=== PATIENT | female | born 2000 | race Two or more races ===

== ENCOUNTER 2024-05-26 11:06 | Outpatient (CLI) | payer OTHER | END 2024-05-26 11:07 | disposition home or self-care (01) | LOC: PRENATAL 11:06 | PROVIDERS: ATTEND Obstetrics & Gynecology Maternal & Fetal Medicine | DX: O36.80X0 Pregnancy with inconclusive fetal viability, not applicable or unspecified (principal); Z36.82 Encounter for antenatal screening for nuchal translucency ==

== ENCOUNTER → 2024-07-14 08:05 | Outpatient (CLI) | payer OTHER ==
[~2024-07-14 08:05] MED LIST: ACETAMINOPHEN500 M2 PO; MACROBID 100 M100 MG PO; PEPCID AC10 MG PO; PRENA1 TRUE CO1 EACH PO
== END | disposition home or self-care (01) ==
LOC: PRENATAL 08:05
PROVIDERS: ATTEND Obstetrics & Gynecology Maternal & Fetal Medicine
DX: O44.00 Complete placenta previa NOS or without hemorrhage, unspecified trimester (principal); Z3A.19 19 weeks gestation of pregnancy

== ENCOUNTER 2024-08-02 13:43 | Emergency (ER) | payer OTHER ==
[~2024-08-02] VITALS: Ht 144.8 cm; Wt 69.4 kg
[2024-08-02] MEDS ORDERED: ACETAMINOPHEN500 M2 PO (14:24)
[2024-08-02] MEDS ORDERED: PRENA1 TRUE CO1 EACH PO (14:24)
[2024-08-02] MEDS ORDERED: PEPCID AC10 MG PO (14:24)
[2024-08-02] MEDS ORDERED: ACETAMINOPHEN 500 MG GEL..CAP PO ONE ×2 (17:45→18:09)
[2024-08-02 18:33] LABS: HEMATOCRIT 31.8 % (36.0-45.00); HEMOGLOBIN 10.7 g/dL (12.0-15.00); MEAN CELL VOLUME 85.1 fL (80.00-100.00); MEAN CORPUSCULAR HEMOGLOBIN 28.7 pg (27.00-32.0); MEAN CORPUSCULAR HGB CONC 33.7 g/dl (32.0-36.0); PLATELET COUNT 333 K/uL (150-450); RED BLOOD COUNT 3.73 M/uL (4.00-6.00)
[2024-08-02 18:57] LABS: PH,URINE 5.5 (5.0-8.0); URINE APPEARANCE Cloudy; URINE BILIRRUBIN Negative (NEGATIVE); URINE BLOOD Negative; URINE COLOR Yellow; URINE GLUCOSE Negative (NEGATIVE); URINE KETONE 15 (NEGATIVE); URINE LEUKOCYTE Small; URINE NITRATE Negative; URINE PROTEIN Trace (NEGATIVE); URINE UROBILINOGEN 0.2 E.U./dl
[2024-08-02 19:01] LABS: URINE EPITHELIAL CELLS 173.9 uL (0.0-38.8); URINE RBC 4.7 uL (0.0-20.8)
[2024-08-02 19:19] LABS: URINE BACTERIA > 9821.5 uL (0.0-1933); URINE CAST 0.15 uL (0.0-1.40)
[2024-08-02] MEDS ORDERED: MACROBID 100 M100 MG PO (19:34)
== END 2024-08-02 20:51 | disposition home or self-care (01) ==
LOC: ER 13:45
PROVIDERS: Nurse Practitioner Family
DX: O23.42 Unspecified infection of urinary tract in pregnancy, second trimester (principal); N39.0 Urinary tract infection, site not specified; O26.892 Other specified pregnancy related conditions, second trimester; J00 Acute nasopharyngitis [common cold]; Z3A.23 23 weeks gestation of pregnancy; Z20.822 Contact with and (suspected) exposure to COVID-19

== ENCOUNTER 2024-08-05 10:29 | Emergency (ER) | payer OTHER ==
[~2024-08-05] VITALS: Ht 144.8 cm; Wt 69.4 kg
[2024-08-05] MEDS ORDERED: LIDOCAINE HCL VISCOUS 20MG/ML BLIST 15ML MM ONE ×4 (13:30→13:45)
[2024-08-05] MEDS ORDERED: GUAIFENESIN/DEXTROMETHORPHAN 10ML BLIST.PACK PO ONE (13:30)
[2024-08-05] MEDS ORDERED: GUAIFEN/DEXTROMETHORPHAN/PE 10 ML BLIST.PACK PO ONE ×2 (13:38→13:39)
[2024-08-05 14:06] LABS: HEMATOCRIT 32.9 % (36.0-45.00); HEMOGLOBIN 11.3 g/dL (12.0-15.00); MEAN CELL VOLUME 85.4 fL (80.00-100.00); MEAN CORPUSCULAR HEMOGLOBIN 29.2 pg (27.00-32.0); MEAN CORPUSCULAR HGB CONC 34.2 g/dl (32.0-36.0); PLATELET COUNT 341 K/uL (150-450); RED BLOOD COUNT 3.85 M/uL (4.00-6.00); RED CELL DISTRIBUTION WIDTH 14.1 % (11.5-14.5)
[2024-08-05 14:07] LABS: PH,URINE 6.5 (5.0-8.0); URINE APPEARANCE Cloudy; URINE BACTERIA 4530.9 uL (0.0-1933); URINE BILIRRUBIN Negative (NEGATIVE); URINE BLOOD Negative; URINE COLOR Yellow; URINE EPITHELIAL CELLS 127.4 uL (0.0-38.8); URINE GLUCOSE Negative (NEGATIVE); URINE KETONE Negative (NEGATIVE); URINE LEUKOCYTE Moderate; URINE NITRATE Negative; URINE PROTEIN Negative (NEGATIVE); URINE RBC 5.3 uL (0.0-20.8); URINE UROBILINOGEN 0.2 E.U./dl; URINE WBC 179.5 uL (0.0-23.2)
== END 2024-08-05 16:04 | disposition home or self-care (01) ==
LOC: ER 10:31
PROVIDERS: Emergency Medicine
DX: Z34.90 Encounter for supervision of normal pregnancy, unspecified, unspecified trimester (principal); J40 Bronchitis, not specified as acute or chronic; N39.0 Urinary tract infection, site not specified; J00 Acute nasopharyngitis [common cold]

== ENCOUNTER → 2024-10-04 15:24 | Outpatient (CLI) | payer OTHER | END | disposition home or self-care (01) | LOC: PRENATAL 15:24 | PROVIDERS: ATTEND Obstetrics & Gynecology Maternal & Fetal Medicine | DX: O26.849 Uterine size-date discrepancy, unspecified trimester (principal); O36.8199 Decreased fetal movements, unspecified trimester, other fetus; O26.859 Spotting complicating pregnancy, unspecified trimester; Z3A.32 32 weeks gestation of pregnancy ==

== ENCOUNTER 2024-11-18 18:14 | Inpatient (IN) | payer OTHER ==
[~2024-11-18] VITALS: Ht 144.8 cm; Wt 73.9 kg
[2024-11-18 16:29] VITALS: BP 142/82
[2024-11-18] MEDS ORDERED: RINGERS SOLUTION,LACTATED 1,000 ML IV SCH (18:30)
[2024-11-18] MEDS ORDERED: AMPICILLIN SODIUM 2,000 MG VIAL IV ONE (18:30)
[2024-11-18 18:48] LABS: PH,URINE 6.5 (5.0-8.0); URINE APPEARANCE Turbid; URINE BILIRRUBIN Negative (NEGATIVE); URINE BLOOD Negative; URINE COLOR Yellow; URINE GLUCOSE Negative (NEGATIVE); URINE KETONE Negative (NEGATIVE); URINE LEUKOCYTE Large; URINE NITRATE Negative; URINE PROTEIN Negative (NEGATIVE); URINE UROBILINOGEN 0.2 E.U./dl
[2024-11-18 18:52] LABS: URINE EPITHELIAL CELLS 73.2 uL (0.0-38.8); URINE RBC 4.4 uL (0.0-20.8); URINE WBC 322.6 uL (0.0-23.2)
[2024-11-18 19:06] LABS: HEMATOCRIT 31.6 % (36.0-45.00); HEMOGLOBIN 10.4 g/dL (12.0-15.00); MEAN CELL VOLUME 75.6 fL (80.00-100.00); MEAN CORPUSCULAR HGB CONC 33.1 g/dl (32.0-36.0); PLATELET COUNT 364 K/uL (150-450); RED BLOOD COUNT 4.18 M/uL (4.00-6.00); RED CELL DISTRIBUTION WIDTH 16.8 % (11.5-14.5); URINE BACTERIA > 9821.5 uL (0.0-1933)
[2024-11-18 19:10] LABS: INR 0.97; PARTIAL THROMBOPLASTIN TIME 27.9 SECONDS (22.0-34.0); PROTHROMBIN TIME 10.6 SECONDS (9.0-11.5)
[2024-11-18 19:14] LABS: ALBUMIN 2.6 gm/dL (3.4-5.0); BILIRUBIN TOTAL 0.3 mg/dL (0.3-1.2); CALCIUM 9.1 mg/dL (8.5-10.1); CREATININE SERUM 0.61 mg/dL (0.55-1.02); GFR 120.5; GLOBULINA 4.8 G/DL (2.4-3.5); POTASSIUM 4.07 mEq/L (3.5-5.1); TOTAL PROTEIN 7.4 gm/dL (6.4-8.2)
[2024-11-18 20:43] VITALS: BP 142/90
[2024-11-18] MEDS ORDERED: AMPICILLIN SODIUM 1,000 MG VIAL IV SCH (21:00)
[2024-11-18 23:22] VITALS: BP 131/82
[2024-11-19 03:17] VITALS: BP 129/78
[2024-11-19 07:22] VITALS: BP 122/80
[2024-11-19] MEDS ORDERED: MISOPROSTOL 25 MCG/4 ML GEL.W.APPL ONE ×2 (12:14→18:32)
[2024-11-19 12:15] VITALS: BP 129/78
[2024-11-19] MEDS ORDERED: MISOPROSTOL 25 MCG/4 ML GEL.W.APPL VAG ONE (12:15)
[2024-11-19 15:37] VITALS: BP 120/77
[2024-11-19 23:33] VITALS: BP 128/88
[2024-11-19] MEDS ORDERED: FAMOTIDINE/PF 20 MG/2 ML VIAL IV ONE (23:45)
[2024-11-20 03:10] VITALS: BP 129/71
[2024-11-20 07:55] VITALS: BP 108/73
[2024-11-20 12:58] VITALS: BP 128/82
[2024-11-20 15:54] VITALS: BP 124/75
[2024-11-20 17:08] VITALS: BP 108/72
== END 2024-11-20 18:07 | disposition home or self-care (01) | DRG 833 ==
LOC: LDR 18:14
PROVIDERS: ADMIT Obstetrics & Gynecology Obstetrics; ATTEND Obstetrics & Gynecology Obstetrics
PROC: 4A1HXCZ Monitoring of Products of Conception, Cardiac Rate, External Approach (ICD-10-PCS; principal; 2024-11-18)
PROC: BY4FZZZ Ultrasonography of Third Trimester, Single Fetus (ICD-10-PCS; 2024-11-18)
DX: O47.1 False labor at or after 37 completed weeks of gestation (principal); Z3A.38 38 weeks gestation of pregnancy

== ENCOUNTER 2024-11-25 19:17 | Inpatient (IN) | payer OTHER ==
[~2024-11-25] VITALS: Ht 144.8 cm; Wt 73.9 kg
[2024-11-25 20:00] VITALS: BP 134/94
[2024-11-25] MEDS ORDERED: NIFEDIPINE 30 MG TAB.SA.OSM PO ONE (20:45)
[2024-11-25] MEDS ORDERED: ACETAMINOPHEN 500 MG GEL..CAP PO ONE (20:45)
[2024-11-25 21:02] LABS: HEMATOCRIT 29.8 % (36.0-45.00); MEAN CELL VOLUME 74.8 fL (80.00-100.00); MEAN CORPUSCULAR HEMOGLOBIN 25.1 pg (27.00-32.0); MEAN CORPUSCULAR HGB CONC 33.6 g/dl (32.0-36.0); PLATELET COUNT 370 K/uL (150-450); RED BLOOD COUNT 3.98 M/uL (4.00-6.00); RED CELL DISTRIBUTION WIDTH 17.1 % (11.5-14.5)
[2024-11-25 21:06] LABS: PH,URINE 6.5 (5.0-8.0); URINE APPEARANCE Cloudy; URINE BILIRRUBIN Negative (NEGATIVE); URINE BLOOD Negative; URINE COLOR Yellow; URINE GLUCOSE Negative (NEGATIVE); URINE KETONE Negative (NEGATIVE); URINE LEUKOCYTE Small; URINE NITRATE Negative; URINE PROTEIN Negative (NEGATIVE); URINE UROBILINOGEN 0.2 E.U./dl
[2024-11-25 21:10] LABS: URINE BACTERIA 1211.6 uL (0.0-1933); URINE EPITHELIAL CELLS 31.4 uL (0.0-38.8); URINE WBC 15.8 uL (0.0-23.2)
[2024-11-25 21:27] LABS: ALBUMIN 2.3 gm/dL (3.4-5.0); BILIRUBIN TOTAL 0.18 mg/dL (0.3-1.2); CREATININE SERUM 0.68 mg/dL (0.55-1.02); GFR 106.3; GLOBULINA 4.4 G/DL (2.4-3.5); POTASSIUM 3.99 mEq/L (3.5-5.1); TOTAL PROTEIN 6.7 gm/dL (6.4-8.2)
[2024-11-25 21:36] LABS: URINE CAST 0.14 uL (0.0-1.40); URINE RBC 1.4 uL (0.0-20.8)
[2024-11-25] MEDS ORDERED: SIMETHICONE 125 MG CAPSULE PO ONE (21:45)
[2024-11-25] MEDS ORDERED: NIFEDIPINE 10 MG CAPSULE PO ONE (21:47)
[2024-11-25] MEDS ORDERED: NIFEDIPINE 20 MG CAPSULE PO ONE (21:48)
[2024-11-25 23:25] VITALS: BP 129/82
[2024-11-25 23:41] LABS: INR 0.98; PARTIAL THROMBOPLASTIN TIME 27.3 SECONDS (22.0-34.0); PROTHROMBIN TIME 10.7 SECONDS (9.0-11.5)
[2024-11-26] MEDS ORDERED: PROMETHAZINE HCL 25 MG/ML AMPUL IV ONE (00:45)
[2024-11-26 03:23] VITALS: BP 117/85
[2024-11-26 06:40] VITALS: BP 103/72; O2SAT 98
[2024-11-26 11:27] VITALS: BP 123/86
[2024-11-26 15:11] VITALS: BP 125/81
[2024-11-26 19:50] VITALS: BP 126/84
[2024-11-26 20:08] LABS: URINE PROT QUANT 24HR 8.5 MG/DL
[2024-11-26] MEDS ORDERED: FAMOTIDINE/PF 20 MG/2 ML VIAL IV SCH (21:44)
[2024-11-26 23:55] VITALS: BP 122/83
[2024-11-27 04:31] VITALS: BP 113/78
[2024-11-27 07:13] VITALS: BP 117/77
[2024-11-27 11:05] VITALS: BP 117/88
[2024-11-27 15:11] VITALS: BP 126/83
[2024-11-27 19:16] VITALS: BP 120/84
[2024-11-27 23:21] VITALS: BP 126/91
[2024-11-28] MEDS ORDERED: ACETAMINOPHEN 500 MG GEL..CAP PO ONE ×2 (01:13→01:45)
[2024-11-28 03:43] VITALS: BP 117/83
[2024-11-28 07:17] VITALS: BP 112/77
[2024-11-28 11:00] VITALS: BP 118/81
[2024-11-28 15:07] VITALS: BP 127/86
[2024-11-28] MEDS ORDERED: AMPICILLIN SODIUM 2,000 MG VIAL ONE (15:26)
[2024-11-28] MEDS ORDERED: AMPICILLIN SODIUM 2,000 MG VIAL IV ONE (15:30)
[2024-11-28] MEDS ORDERED: AMPICILLIN SODIUM 1,000 MG VIAL IV SCH (20:00)
[2024-11-28 20:26] VITALS: BP 134/92; BP 146/86
[2024-11-28] MEDS ORDERED: AMPICILLIN SODIUM 1,000 MG VIAL ONE (20:27)
[2024-11-28 23:10] VITALS: BP 131/92
[2024-11-28] MEDS ORDERED: FAMOTIDINE/PF 20 MG/2 ML VIAL IV ONE (23:45)
[2024-11-29 03:47] VITALS: BP 120/81
[2024-11-29 07:22] VITALS: BP 118/85
[2024-11-29 11:15] VITALS: BP 133/89
[2024-11-29] MEDS ORDERED: MISOPROSTOL 25 MCG/4 ML GEL.W.APPL VAG NR ×2 (12:00→17:15)
[2024-11-29 15:15] VITALS: BP 121/64
[2024-11-29] MEDS ORDERED: MISOPROSTOL 25 MCG/4 ML GEL.W.APPL ONE (17:57)
[2024-11-29 19:52] VITALS: BP 137/92
[2024-11-29 23:12] VITALS: BP 127/86
[2024-11-30 03:46] VITALS: BP 102/65
[2024-11-30 07:19] VITALS: BP 120/78
[2024-11-30 12:00] VITALS: BP 109/68
[2024-11-30] MEDS ORDERED: OXYTOCIN 10 UNITS/ML VIAL ONE (13:14)
[2024-11-30] MEDS ORDERED: ERYTHROMYCIN BASE OPHT 1GM EACH TUBE OP ONE (13:14)
[2024-11-30] MEDS ORDERED: MORPHINE SULFATE 4 MG/ML CARTRIDGE IV PRN (15:00)
[2024-11-30] MEDS ORDERED: MORPHINE SULFATE 4 MG/ML VIAL IV ONE ×2 (16:10→16:40)
[2024-11-30] MEDS ORDERED: AMPICILLIN SODIUM 1,000 MG VIAL ONE (16:55)
[2024-11-30 18:02] VITALS: BP 140/80
[2024-11-30 20:51] VITALS: BP 150/80
[2024-12-01 00:35] VITALS: BP 130/93
[2024-12-01] MEDS ORDERED: OxyCODONE HCL/APAP UD (PERCOCET) PO PRN (07:45)
[2024-12-01 07:55] VITALS: BP 138/68
[2024-12-01 15:55] VITALS: BP 121/74
[2024-12-02] VITALS: BP 110/71
[2024-12-02 09:00] VITALS: BP 130/92
[2024-12-02 16:10] VITALS: BP 140/80
[2024-12-03 00:59] VITALS: BP 138/65
[2024-12-03 08:00] VITALS: BP 128/89
[2024-12-03] MEDS ORDERED: OxyCODONE HCL/APAP UD (PERCOCET) PO ONE (11:15)
[2024-12-03 15:16] VITALS: BP 137/93
== END 2024-12-03 16:43 | disposition home or self-care (01) | DRG 788 ==
LOC: LDR 19:17 → OB/GYN 11-30 15:33
PROVIDERS: ADMIT Obstetrics & Gynecology Obstetrics; ATTEND Obstetrics & Gynecology Obstetrics
PROC: 4A1HXCZ Monitoring of Products of Conception, Cardiac Rate, External Approach (ICD-10-PCS; 2024-11-25)
PROC: BY4FZZZ Ultrasonography of Third Trimester, Single Fetus (ICD-10-PCS; 2024-11-26)
PROC: 10D00Z1 Extraction of Products of Conception, Low, Open Approach (ICD-10-PCS; principal; 2024-11-30 13:30)
DX: O10.92 Unspecified pre-existing hypertension complicating childbirth (principal); O62.0 Primary inadequate contractions; O26.843 Uterine size-date discrepancy, third trimester; O36.8130 Decreased fetal movements, third trimester, not applicable or unspecified; Z3A.40 40 weeks gestation of pregnancy; Z37.0 Single live birth